=== PATIENT | female | born 1965 | race Caucasian/White ===

== ENCOUNTER 2019-07-19 17:27 | Emergency (ER) | payer MEDICAID ==
[~2019-07-19] VITALS: Ht 162.6 cm; Wt 72.2 kg
[~2019-07-19 17:27] MED LIST: DEXT15DR5 OP
[2019-07-19 17:50] VITALS: BP 151/81; PULSE 70; RESP 18; Ht 162.6 cm; Wt 72.2 kg
== END 2019-07-19 18:00 | disposition home or self-care (01) ==
LOC: E/R 17:27
DX: H11.31 Conjunctival hemorrhage, right eye (principal); I10 Essential (primary) hypertension
CPT/HCPCS: 99283